=== PATIENT | female | born 1950 | race African-American/Black ===

== ENCOUNTER → 2017-03-30 | Outpatient (CLI) | payer MEDICARE ==
[~2017-03-30] MED LIST: CARVEDILOL25 MG PO; CRESTOR PO; FERROUS SULFAT325 MG PO; ISOSORBIDE PO; LANTUS100 UNITS/ INJ; OMEGA 3 FISH O1 EACH PO; PANTOPRAZOLE SO40 MG PO; REGADENOSON 0.4 MG/5 ML SYR IV ONE; RENEXA PO; VICTOZA 2-0.6 MG/0.1 INJ
--- NOTE | 2017-04-02 14:47 | Cardiology Report ---
DATE OF STUDY: April 18, 2017 NUCLEAR GATED MYOCARDIAL PERFUSION SCAN Nuclear gated myocardial perfusion scan performed as per protocol at nuclear medicine lab at [facility]. Lexiscan injected 0.4 mg intravenously as stress agent and Myoview injected 11 mCi for resting protocol and 28 mCi for stress protocol. IMPRESSION: No evidence of scar noted. Left ventricular ejection fraction 55%. Normal study. Job#: [id number]
== END ==
LOC: NM 08:05
PROVIDERS: ATTEND Internal Medicine Cardiovascular Disease
DX: I25.118 Atherosclerotic heart disease of native coronary artery with other forms of angina pectoris (principal); R06.02 Shortness of breath; R07.9 Chest pain, unspecified
CPT/HCPCS: 36415; 78452; 82948; 93017; A9502

== ENCOUNTER → 2021-09-20 | Outpatient (CLI) | payer MEDICARE ==
[~2021-09-20] MED LIST changes: +DIATRIZOATE MEGL/DIATRIZOA SOD 30 ML BTL PO ONE; +IOPAMIDOL 370 MG/ML 100 ML INFUS..BTL INJ ONE; -REGADENOSON 0.4 MG/5 ML SYR IV ONE
[2021-09-20 08:23] LABS: CREATININE, SERUM 1.04 mg/dL (0.57-1.11)
== END ==
LOC: CT 07:28
PROVIDERS: ATTEND Surgery
DX: R10.31 Right lower quadrant pain (principal)
CPT/HCPCS: 36415; 74177; 82565; 84520; Q9963; Q9967